=== PATIENT | female | born 1950 | race Caucasian/White ===

== ENCOUNTER 2018-12-27 06:13 | Inpatient (IN) ==
[~2018-12-27 06:13] MED LIST: ASPIRIN 325 MG TABLET PO ONE; DEXTROSE 5% NACL 0.45% 1,000 ML IV SCH; DIAZEPAM 5 MG TABLET PO ONE; MAGNESIUM SULF RIDER 2 GM in PREMIX 1 EACH IV PRN; POTASSIUM CHLORIDE RIDER 10 MEQ in PREMIX 1 EACH IV PRN; diphenhydrAMINE CAP 25 MG CAPSULE PO ONE
[2018-12-27] MEDS ORDERED: HEPARIN/NACL 0.9% 2 UNITS/ML 1,000 ML IV ONE (06:58)
[2018-12-27] MEDS ORDERED: LIDOCAINE 1%/EPI INJ 20 ML VIAL ONE (07:14)
[2018-12-27] MEDS ORDERED: diphenhydrAMINE CAP 25 MG CAPSULE PO ONE (07:30)
[2018-12-27] MEDS ORDERED: DIAZEPAM 5 MG TABLET PO ONE (07:30)
[2018-12-27] MEDS ORDERED: ASPIRIN 325 MG TABLET PO ONE (07:30)
[2018-12-27] MEDS ORDERED: MIDAZOLAM 2 MG/2 ML VIAL ONE (08:35)
[2018-12-27] MEDS ORDERED: fentaNYL 100 MCG/2 ML VIAL ONE (08:35)
[2018-12-27] MEDS ORDERED: MECLIZINE 25 MG TABLET PO PRN (09:27)
[2018-12-27] MEDS ORDERED: NITROGLYCERIN SL 0.4 MG TABLET SL PRN (09:27)
[2018-12-27] MEDS ORDERED: MAGNESIUM SULF RIDER 4 GM in PREMIX 1 EACH IV PRN (11:22)
[2018-12-27] MEDS ORDERED: ACETAMINOPHEN 325 MG TABLET PO PRN (11:22)
[2018-12-27] MEDS ORDERED: ONDANSETRON 4 MG/2 ML VIAL IV PRN (11:22)
[2018-12-27] MEDS ORDERED: MAGNESIUM SULF RIDER 2 GM in PREMIX 1 EACH IV PRN (11:22)
[2018-12-27] MEDS ORDERED: diphenhydrAMINE CAP 25 MG CAPSULE PO PRN (11:22)
[2018-12-27] MEDS ORDERED: MAGNESIUM HYDROXIDE SUSP 30 ML UDCUP PO PRN (13:09)
[2018-12-27] MEDS ORDERED: ALPRAZolam 0.25 MG TABLET PO PRN (13:10)
[2018-12-27] MEDS ORDERED: LISINOPRIL 20 MG TABLET PO ONE (13:53)
[2018-12-27] MEDS: METOPROLOL TARTRATE 25 MG TABLET PO SCH (22:08)
[2018-12-27] MEDS: ASCORBIC ACID 500 MG TABLET PO SCH (22:09)
[2018-12-27] MEDS: MELOXICAM 7.5 MG TABLET PO SCH (22:09)
[2018-12-27] MEDS: DICYCLOMINE 20 MG TABLET PO SCH (22:10)
[2018-12-28 05:01] LABS: Basophils % 0.3 % (0.0-0.8); Eosinophils # 0.2 10*3/uL (0.0-0.87); Eosinophils % 2.1 % (0.00-10.9); Hematocrit 37.9 VOL% (35.7-47.0); Immature Granulocytes % 0.6 %; Immature Granulocytes Absolute 0.04 #; Lymphocytes # 1.7 10*3/uL (1.4-4.0); Lymphocytes % 24.3 % (21.3-54.2); Mean Corpuscular HGB Conc 31.7 GM/DL (32-36); Mean Corpuscular Volume 94.3 FL (87-102); Mean Platelet Volume 11.4 FL (9.6-12.0); Monocytes % 10.1 % (1.7-12.7); Neutrophils % 62.6 % (38.7-73.9); Platelet Count 254 T/CUMM (130-400); Red Blood Count 4.02 MC/CUMM (3.8-5.5); Red Cell Distribution Width 13.4 % (9.3-17.3)
[2018-12-28 05:32] LABS: Alanine Aminotransferase 22 U/L (13-56); Albumin 3.3 G/DL (3.4-5.0); Alkaline Phosphatase 39 U/L (45-117); Aspartate Amino Transferase 20 U/L (0-37); Bilirubin,Total < 0.39 MG/DL (0.2-1.0); Blood Urea Nitrogen 34 MG/DL (7-18); Calcium 9.4 MG/DL (8.5-10.1); Glucose 126 MG/DL (74-106); Osmolality,Calculated 290.3 MOS/KG (273-304); Total Protein 7.3 G/DL (6.4-8.3)
[2018-12-28 05:43] LABS: Apearance,Urine CLEAR (Clear); Bilirubin,Urine Negative (Negative); Blood, Urine Negative (Negative); Glucose,Urine (UA) 50 mg/dL (Negative); Ketones,Urine Negative (Negative); Mucus,Urine Occasional /LPF (Occasional); Nitrite,Urine Negative (Negative); Protein,Urine Negative; RBC,Urine 1 /HPF (0-4); Squamous Epithelial Cell,Urine Occasional /HPF (0-10); Urine Color Yellow (Yellow); Urine Specific Gravity 1.018 (1.001-1.035); Urine Urobilinogen < 2.0 EU/DL (0.2-1.0); WBC,Urine 23 /HPF (0-6)
[2018-12-28] MEDS: LEVOTHYROXINE 150 MCG TABLET PO SCH (06:35)
[2018-12-28] MEDS: MELOXICAM 7.5 MG TABLET PO SCH ×2 (08:18→21:09)
[2018-12-28] MEDS: ASCORBIC ACID 500 MG TABLET PO SCH ×2 (08:19→21:09)
[2018-12-28] MEDS: METOPROLOL TARTRATE 25 MG TABLET PO SCH ×2 (08:19→21:08)
[2018-12-28] MEDS: FENOFIBRATE 145 MG TABLET PO SCH (08:20)
[2018-12-28] MEDS: PANTOPRAZOLE 40 MG TABLET PO SCH (08:20)
[2018-12-28] MEDS: amLODIPine 2.5 MG TABLET PO SCH (08:20)
[2018-12-28] MEDS: LISINOPRIL 20 MG TABLET PO SCH (08:20)
[2018-12-28] MEDS: hydroCHLOROthiazide 12.5 MG CAPSULE PO SCH (08:20)
[2018-12-28] MEDS: ASPIRIN EC 81 MG TABLET PO SCH (08:21)
[2018-12-28] MEDS: DICYCLOMINE 20 MG TABLET PO SCH ×2 (08:21→21:09)
[2018-12-28] MEDS: Dapagliflozin [Farxiga] 5 MG PO SCH (08:21)
[2018-12-28] MEDS ORDERED: DEXTROSE 50% 25 GM/50 ML VIAL IV PRN (10:11)
[2018-12-28] MEDS ORDERED: GLUCAGON 1 MG VIAL IM PRN (10:11)
[2018-12-28] MEDS: ENOXAPARIN 120 MG/0.8 ML SYRINGE SUBCUT SCH ×2 (10:39→23:44)
[2018-12-28] MEDS: INSULIN LISPRO 100 UNIT/ML SUBCUT SCH ×3 (14:23→21:09)
[2018-12-28] MEDS: ROSUVASTATIN 20 MG TABLET PO SCH (21:08)
[2018-12-29 04:40] LABS: Basophils % 0.5 % (0.0-0.8); Eosinophils # 0.2 10*3/uL (0.0-0.87); Eosinophils % 2.5 % (0.00-10.9); Hematocrit 38.9 VOL% (35.7-47.0); Hemoglobin 12.2 GM/DL (12.0-16.0); Immature Granulocytes % 0.6 %; Immature Granulocytes Absolute 0.04 #; Lymphocytes # 1.5 10*3/uL (1.4-4.0); Lymphocytes % 23.2 % (21.3-54.2); Mean Corpuscular HGB Conc 31.4 GM/DL (32-36); Mean Corpuscular Volume 94.4 FL (87-102); Monocytes % 11.8 % (1.7-12.7); Neutrophils % 61.4 % (38.7-73.9); Platelet Count 251 T/CUMM (130-400); Red Blood Count 4.12 MC/CUMM (3.8-5.5); Red Cell Distribution Width 13.2 % (9.3-17.3); White Blood Count 6.3 T/CUMM (4-12)
[2018-12-29 05:05] LABS: Albumin 3.3 G/DL (3.4-5.0); Bilirubin,Total 0.4 MG/DL (0.2-1.0); Calcium 9.8 MG/DL (8.5-10.1); Osmolality,Calculated 287.4 MOS/KG (273-304); Total Protein 7.5 G/DL (6.4-8.3)
[2018-12-29] MEDS ORDERED: GLUCAGON 1 MG VIAL IM PRN (06:17)
[2018-12-29] MEDS ORDERED: DEXTROSE 50% 25 GM/50 ML VIAL IV PRN (06:17)
[2018-12-29] MEDS: LEVOTHYROXINE 150 MCG TABLET PO SCH (06:24)
[2018-12-29 06:38] LABS: ABG Base Excess 1.1 MMOL/L (-2.5-2.5); ABG HCO3 25.3 MMOL/L (20-26); ABG Oxygen Saturation 96.6 % (95-100); ABG PCO2 42.4 MM HG (35-48); ABG PH 7.398 (7.35-7.45); ABG PO2 87.4 MM HG (80-95); ABG TCO2 22.7 MMOL/L (23-27); Allen Test Positive; Pt O2 Delivery Device Room Air
[2018-12-29] MEDS: INSULIN LISPRO 100 UNIT/ML SUBCUT SCH ×4 (08:26→21:23)
[2018-12-29] MEDS: ENOXAPARIN 120 MG/0.8 ML SYRINGE SUBCUT SCH ×2 (08:39→21:21)
[2018-12-29] MEDS: CHLORHEXIDINE 0.12% ORAL RINSE 60 ML BOTTLE SWISH/SPIT SCH ×2 (08:39→21:20)
[2018-12-29] MEDS: amLODIPine 2.5 MG TABLET PO SCH (08:40)
[2018-12-29] MEDS: PANTOPRAZOLE 40 MG TABLET PO SCH (08:40)
[2018-12-29] MEDS: LISINOPRIL 20 MG TABLET PO SCH (08:40)
[2018-12-29] MEDS: ASCORBIC ACID 500 MG TABLET PO SCH ×2 (08:40→21:22)
[2018-12-29] MEDS: hydroCHLOROthiazide 12.5 MG CAPSULE PO SCH (08:40)
[2018-12-29] MEDS: CHLORHEXIDINE 4% SOLN 118 ML BOTTLE TOP SCH ×3 (08:41→21:23)
[2018-12-29] MEDS: FENOFIBRATE 145 MG TABLET PO SCH (08:41)
[2018-12-29] MEDS: METOPROLOL TARTRATE 25 MG TABLET PO SCH ×2 (08:41→21:22)
[2018-12-29] MEDS: MELOXICAM 7.5 MG TABLET PO SCH ×2 (08:41→21:22)
[2018-12-29] MEDS: ASPIRIN EC 81 MG TABLET PO SCH (08:41)
[2018-12-29] MEDS: Dapagliflozin [Farxiga] 5 MG PO SCH (08:41)
[2018-12-29] MEDS: DICYCLOMINE 20 MG TABLET PO SCH ×2 (08:41→21:26)
[2018-12-29] MEDS ORDERED: LACTATED RINGERS 1,000 ML IV SCH (10:30)
[2018-12-29] MEDS: SODIUM CHLORIDE 0.9% 1,000 ML IV SCH (11:47)
[2018-12-29] MEDS: ROSUVASTATIN 20 MG TABLET PO SCH (21:22)
[2018-12-30] MEDS ORDERED: PAPAVERINE 60 MG/2 ML VIAL ONE (04:22)
[2018-12-30] MEDS ORDERED: VANCOMYCIN 1,000 MG VIAL ONE (04:22)
[2018-12-30] MEDS ORDERED: PANTOPRAZOLE 40 MG TABLET PO ONE (05:30)
[2018-12-30] MEDS ORDERED: DIAZEPAM 5 MG TABLET PO ONE (05:30)
[2018-12-30] MEDS ORDERED: SUFentanil 250 MCG/5 ML AMP ONE (05:46)
[2018-12-30] MEDS ORDERED: HEPARIN/NACL 0.9% 2 UNITS/ML 500 ML IV ONE (05:46)
[2018-12-30] MEDS ORDERED: PHENYLEPHRINE DRIP 20 MG/250 ML PREMIX IV ONE (05:46)
[2018-12-30] MEDS ORDERED: CALCIUM CHLORIDE 1,000 MG/10 ML VIAL IV ONE (05:46)
[2018-12-30 05:47] LABS: Basophils % 0.4 % (0.0-0.8); Eosinophils # 0.2 10*3/uL (0.0-0.87); Eosinophils % 2.5 % (0.00-10.9); Hematocrit 39.8 VOL% (35.7-47.0); Hemoglobin 12.6 GM/DL (12.0-16.0); Immature Granulocytes % 0.6 %; Immature Granulocytes Absolute 0.04 #; Lymphocytes # 1.8 10*3/uL (1.4-4.0); Lymphocytes % 24.5 % (21.3-54.2); Mean Corpuscular HGB Conc 31.7 GM/DL (32-36); Mean Corpuscular Volume 94.1 FL (87-102); Mean Platelet Volume 11.6 FL (9.6-12.0); Monocytes % 9.1 % (1.7-12.7); Neutrophils % 62.9 % (38.7-73.9); Platelet Count 304 T/CUMM (130-400); Red Blood Count 4.23 MC/CUMM (3.8-5.5); Red Cell Distribution Width 13.2 % (9.3-17.3); White Blood Count 7.3 T/CUMM (4-12)
[2018-12-30] MEDS ORDERED: ePHEDrine 50 MG/ML AMP ONE (05:47)
[2018-12-30] MEDS ORDERED: ETOMIDATE 40 MG/20 ML VIAL IV ONE (05:47)
[2018-12-30] MEDS ORDERED: MIDAZOLAM 10 MG/2 ML VIAL ONE ×2 (05:47)
[2018-12-30] MEDS ORDERED: VECURONIUM 10 MG VIAL IV ONE (05:47)
[2018-12-30] MEDS ORDERED: SODIUM CHLORIDE 0.9% 250 ML IV ONE (05:48)
[2018-12-30] MEDS ORDERED: AMINOCAPROIC ACID 5,000 MG/20 ML VIAL ONE (05:48)
[2018-12-30] MEDS ORDERED: LACTATED RINGERS 1,000 ML IV ONE (05:48)
[2018-12-30] MEDS ORDERED: SODIUM CHLORIDE 0.9% 1,000 ML IV ONE (05:48)
[2018-12-30] MEDS ORDERED: CEFUROXIME INJ 1,500 MG in SYRINGE 1 EACH IV ONE (06:00)
[2018-12-30 06:37] LABS: Albumin 3.4 G/DL (3.4-5.0); Bilirubin,Total 0.6 MG/DL (0.2-1.0); Calcium 9.6 MG/DL (8.5-10.1); Osmolality,Calculated 287.5 MOS/KG (273-304); Total Protein 7.9 G/DL (6.4-8.3)
[2018-12-30 07:37] LABS: ABG Base Excess -0.7 MMOL/L (-2.5-2.5); ABG HCO3 23.9 MMOL/L (20-26); ABG Oxygen Saturation 99.2 % (95-100); ABG PCO2 43.5 MM HG (35-48); ABG PH 7.365 (7.35-7.45); Glucose Heart Surgery 169 MG/DL (74-106); Hematocrit Heart Surgery 37.2 PERCENT (37-47); Hemoglobin Heart Surgery 12.1 G/DL (12.0-16.0); Ionized Calcium Arterial 1.27 MMOL/L (1.21-1.46); PCO2 Patient Temp Arterial 43.5 MMHG; PH Patient Temp Arterial 7.365; Patient Temperature 37 CELCIUS; Potassium Heart/CVR 4.2 MMOL/L (3.5-5.1); Sodium Heart/CVR 140 MMOL/L (135-145)
[2018-12-30 07:52] LABS: Apearance,Urine CLEAR (Clear); Bacteria,Urine Occasional /HPF (Few); Bilirubin,Urine Negative (Negative); Blood, Urine Negative (Negative); Glucose,Urine (UA) Negative (Negative); Hyaline Casts,Urine 1 /LPF (0-3); Ketones,Urine Negative (Negative); Mucus,Urine Occasional /LPF (Occasional); Nitrite,Urine Negative (Negative); Protein,Urine Negative; RBC,Urine <1 /HPF (0-4); Squamous Epithelial Cell,Urine Occasional /HPF (0-10); Urine Color Yellow (Yellow); Urine Specific Gravity 1.014 (1.001-1.035); Urine Urobilinogen < 2.0 EU/DL (0.2-1.0); WBC,Urine 1 /HPF (0-6)
[2018-12-30] MEDS ORDERED: PHENYLEPHRINE DRIP 40 MG/250 ML PREMIX IV ONE (09:16)
[2018-12-30] MEDS ORDERED: NITROPRUSSIDE 50 MG/2 ML VIAL ONE (09:16)
[2018-12-30] MEDS ORDERED: POTASSIUM CHLORIDE RIDER 100 ML IV ONE (09:16)
[2018-12-30] MEDS ORDERED: SODIUM BICARBONATE 50 MEQ/50 ML VIAL IV ONE ×3 (09:16→14:27)
[2018-12-30] MEDS ORDERED: CALCIUM CHLORIDE 1,000 MG/10 ML SYRINGE IV ONE (09:16)
[2018-12-30 09:30] LABS: Hemoglobin Heart Surgery 8.4 G/DL (12.0-16.0); PCO2 Patient Temp Venous 35.8 MM HG; PH Patient Temp Venous 7.441; PO2 Patient Temp Venous 39.3 MM HG; Potassium Heart/CVR 4.5 MMOL/L (3.5-5.1); VBG Base Excess 0.6 MEQ/L (0-4); VBG HCO3 24.7 MEQ/L (24-28); VBG Oxygen Saturation 80.6 %; VBG PCO2 39.4 MMHG (41-51); VBG PH 7.412; VBG PO2 45.1 MMHG (17-40)
[2018-12-30] MEDS: INSULIN LISPRO 100 UNIT/ML SUBCUT SCH ×2 (09:46→13:16)
[2018-12-30] MEDS: SODIUM CHLORIDE 0.9% 1,000 ML IV SCH (09:46)
[2018-12-30] MEDS: METOPROLOL TARTRATE 25 MG TABLET PO SCH (09:47)
[2018-12-30] MEDS: LEVOTHYROXINE 150 MCG TABLET PO SCH (09:47)
[2018-12-30] MEDS: MELOXICAM 7.5 MG TABLET PO SCH (09:47)
[2018-12-30] MEDS: Dapagliflozin [Farxiga] 5 MG PO SCH (09:47)
[2018-12-30] MEDS: ASPIRIN EC 81 MG TABLET PO SCH (09:47)
[2018-12-30] MEDS: DICYCLOMINE 20 MG TABLET PO SCH (09:47)
[2018-12-30] MEDS: hydroCHLOROthiazide 12.5 MG CAPSULE PO SCH (09:47)
[2018-12-30] MEDS: amLODIPine 2.5 MG TABLET PO SCH (09:48)
[2018-12-30] MEDS: CHLORHEXIDINE 0.12% ORAL RINSE 60 ML BOTTLE SWISH/SPIT SCH ×2 (09:48→21:47)
[2018-12-30] MEDS: ENOXAPARIN 120 MG/0.8 ML SYRINGE SUBCUT SCH (09:48)
[2018-12-30] MEDS: FENOFIBRATE 145 MG TABLET PO SCH (09:48)
[2018-12-30] MEDS: ASCORBIC ACID 500 MG TABLET PO SCH (09:48)
[2018-12-30] MEDS: LISINOPRIL 20 MG TABLET PO SCH (09:48)
[2018-12-30] MEDS: PANTOPRAZOLE 40 MG TABLET PO SCH (09:48)
[2018-12-30 10:03] LABS: Hematocrit Heart Surgery 28.1 PERCENT (37-47); Hemoglobin Heart Surgery 9.1 G/DL (12.0-16.0); PCO2 Patient Temp Venous 33.5 MM HG; PH Patient Temp Venous 7.454; PO2 Patient Temp Venous 37.3 MM HG; Potassium Heart/CVR 4.4 MMOL/L (3.5-5.1); VBG HCO3 24.2 MEQ/L (24-28); VBG Oxygen Saturation 80.8 %; VBG PCO2 38.7 MMHG (41-51); VBG PH 7.41; VBG PO2 45.9 MMHG (17-40)
[2018-12-30 10:41] LABS: Hematocrit Heart Surgery 29.6 PERCENT (37-47); Hemoglobin Heart Surgery 9.6 G/DL (12.0-16.0); PCO2 Patient Temp Venous 38.6 MM HG; PH Patient Temp Venous 7.396; PO2 Patient Temp Venous 43.2 MM HG; Potassium Heart/CVR 4.2 MMOL/L (3.5-5.1); VBG Base Excess -0.9 MEQ/L (0-4); VBG HCO3 23.3 MEQ/L (24-28); VBG Oxygen Saturation 77.5 %; VBG PCO2 38.6 MMHG (41-51); VBG PH 7.396; VBG PO2 43.2 MMHG (17-40)
[2018-12-30 11:02] LABS: ABG Base Excess -2.9 MMOL/L (-2.5-2.5); ABG Oxygen Saturation 97.8 % (95-100); ABG PCO2 40.2 MM HG (35-48); ABG PH 7.354 (7.35-7.45); ABG TCO2 20.6 MMOL/L (23-27); Glucose Heart Surgery 275 MG/DL (74-106); Hematocrit Heart Surgery 29.3 PERCENT (37-47); Hemoglobin Heart Surgery 9.5 G/DL (12.0-16.0); Ionized Calcium Arterial 1.23 MMOL/L (1.21-1.46); PCO2 Patient Temp Arterial 40.2 MMHG; PH Patient Temp Arterial 7.354; Patient Temperature 37 CELCIUS; Potassium Heart/CVR 3.5 MMOL/L (3.5-5.1); Sodium Heart/CVR 134 MMOL/L (135-145)
[2018-12-30] MEDS ORDERED: DEXTROSE 5% KCL 20 MEQ 20 MEQ/1,000 ML BAG IV ONE (11:10)
[2018-12-30] MEDS ORDERED: MAGNESIUM SULFATE 5 GM/10 ML VIAL IV ONE (11:10)
[2018-12-30] MEDS ORDERED: MANNITOL 100 GM/500 ML BAG IV ONE (11:10)
[2018-12-30] MEDS ORDERED: HEPARIN 10,000 UNIT/10 ML VIAL ONE (11:10)
[2018-12-30] MEDS ORDERED: methylPREDNISolone SOD SUC 1,000 MG/8 ML VIAL ONE (11:10)
[2018-12-30] MEDS ORDERED: ALBUMIN 25% 25 GM/100 ML VIAL IV ONE (11:10)
[2018-12-30] MEDS ORDERED: PROTAMINE SULFATE 250 MG/25 ML VIAL IV ONE (11:10)
[2018-12-30] MEDS ORDERED: FUROSEMIDE 20 MG/2 ML VIAL ONE (11:11)
[2018-12-30] MEDS ORDERED: POTASSIUM CHLORIDE 20 MEQ/10 ML VIAL ONE (11:11)
[2018-12-30] MEDS ORDERED: SEVOFLURANE 1 UNIT/15 MINUTE INH ONE (11:44)
[2018-12-30] MEDS ORDERED: NITROPRUSSIDE 100 MG in DEXTROSE 5% 250 ML IV PRN (11:48)
[2018-12-30] MEDS ORDERED: MIDAZOLAM 10 MG/2 ML VIAL IV PRN (11:48)
[2018-12-30] MEDS ORDERED: ONDANSETRON 4 MG/2 ML VIAL IV PRN (11:48)
[2018-12-30] MEDS ORDERED: MIDAZOLAM 2 MG/2 ML VIAL IV PRN (11:48)
[2018-12-30] MEDS ORDERED: VECURONIUM 10 MG VIAL IV PRN ×2 (11:48)
[2018-12-30] MEDS ORDERED: INSULIN REGULAR 100 UNIT/ML IV ONE (11:48)
[2018-12-30] MEDS ORDERED: MAGNESIUM SULF RIDER 4 GM in PREMIX 1 EACH IV PRN (11:48)
[2018-12-30] MEDS ORDERED: POTASSIUM CHLORIDE RIDER 10 MEQ in PREMIX 1 EACH IV PRN (11:48)
[2018-12-30] MEDS ORDERED: MAGNESIUM SULF RIDER 2 GM in PREMIX 1 EACH IV PRN (11:48)
[2018-12-30] MEDS ORDERED: PHENYLEPHRINE DRIP 40 MG/250 ML PREMIX IV PRN (11:48)
[2018-12-30] MEDS ORDERED: DEXTROSE 50% 25 GM/50 ML VIAL IV PRN ×2 (11:48)
[2018-12-30] MEDS ORDERED: LACTATED RINGERS 250 ML IV PRN (11:48)
[2018-12-30] MEDS ORDERED: ACETAMINOPHEN 650 MG SUPP RECTAL PRN (11:48)
[2018-12-30] MEDS ORDERED: CALCIUM CHLORIDE 1,000 MG/10 ML SYRINGE IV PRN (11:48)
[2018-12-30] MEDS ORDERED: MORPHINE 10 MG/1 ML VIAL IV PRN (11:48)
[2018-12-30] MEDS ORDERED: ALBUMIN 5% 12.5 GM in PREMIX 1 EACH IV PRN (11:48)
[2018-12-30] MEDS ORDERED: INSULIN REGULAR 100 UNIT/ML IV PRN (11:48)
[2018-12-30 11:51] LABS: ABG Base Excess -4.7 MMOL/L (-2.5-2.5); ABG HCO3 20.4 MMOL/L (20-26); ABG Oxygen Saturation 95.5 % (95-100); ABG PCO2 47.8 MM HG (35-48); ABG PH 7.276 (7.35-7.45); ABG PO2 90.9 MM HG (80-95); ABG TCO2 20.4 MMOL/L (23-27); Glucose Heart Surgery 247 MG/DL (74-106); Hematocrit Heart Surgery 32.8 PERCENT (37-47); Hemoglobin Heart Surgery 10.6 G/DL (12.0-16.0); Potassium Heart/CVR 3.2 MMOL/L (3.5-5.1)
[2018-12-30 11:55] LABS: Eosinophils % 0.4 % (0.00-10.9); Mean Platelet Volume 11.1 FL (9.6-12.0)
[2018-12-30 11:59] LABS: Basophils % 0.2 % (0.0-0.8); Eosinophils # 0.1 10*3/uL (0.0-0.87); Hematocrit 33.3 VOL% (35.7-47.0); Immature Granulocytes % 1.1 %; Lymphocytes # 2.9 10*3/uL (1.4-4.0); Lymphocytes % 15.6 % (21.3-54.2); Mean Corpuscular HGB Conc 30.3 GM/DL (32-36); Mean Corpuscular Volume 97.4 FL (87-102); Monocytes % 4.7 % (1.7-12.7); Red Blood Count 3.42 MC/CUMM (3.8-5.5); Red Cell Distribution Width 13.3 % (9.3-17.3)
[2018-12-30] MEDS ORDERED: KETOROLAC 15 MG/1 ML VIAL IV SCH (12:00)
[2018-12-30 12:04] LABS: Hemoglobin 10.1 GM/DL (12.0-16.0); Platelet Count 259 T/CUMM (130-400); White Blood Count 18.4 T/CUMM (4-12)
[2018-12-30 12:06] LABS: CKMB % 10.9 %
[2018-12-30 12:09] LABS: INR 1.1; PT Patient Result 11.4 SECS; Partial Thromboplastin Time 25.5 SECS (0-40)
[2018-12-30 12:11] LABS: Troponin I 4.94 NG/ML (0.00-0.045)
[2018-12-30 12:12] LABS: Alanine Aminotransferase 19 U/L (13-56); Albumin 3.4 G/DL (3.4-5.0); Alkaline Phosphatase 39 U/L (45-117); Aspartate Amino Transferase 35 U/L (0-37); Bilirubin,Total < 0.39 MG/DL (0.2-1.0); Blood Urea Nitrogen 30 MG/DL (7-18); Calcium 9.8 MG/DL (8.5-10.1); Glucose 227 MG/DL (74-106); Osmolality,Calculated 289.5 MOS/KG (273-304); Total Protein 6.8 G/DL (6.4-8.3)
[2018-12-30] MEDS: SODIUM CHLORIDE 0.45% 1,000 ML IV SCH ×2 (12:25→12:26)
[2018-12-30] MEDS: POTASSIUM CHLORIDE RIDER 20 MEQ in PREMIX 1 EACH IV PRN ×5 (12:28→18:03)
[2018-12-30 13:28] LABS: ABG HCO3 20.3 MMOL/L (20-26); ABG Oxygen Saturation 96.6 % (95-100); ABG PCO2 45.5 MM HG (35-48); ABG PH 7.285 (7.35-7.45); ABG PO2 98.6 MM HG (80-95); Glucose Heart Surgery 239 MG/DL (74-106); Hematocrit Heart Surgery 30.3 PERCENT (37-47); Hemoglobin Heart Surgery 9.8 G/DL (12.0-16.0); Potassium Heart/CVR 3.9 MMOL/L (3.5-5.1)
[2018-12-30] MEDS: INSULIN REGULAR DRIP 100 ML IV SCH (13:37)
[2018-12-30] MEDS: ALBUTEROL/IPRATROPIUM 3 ML NEB RESP TX SCH ×3 (15:10→23:38)
[2018-12-30 15:12] LABS: ABG Base Excess 0.1 MMOL/L (-2.5-2.5); ABG HCO3 24.5 MMOL/L (20-26); ABG Oxygen Saturation 97.2 % (95-100); ABG PCO2 48.7 MM HG (35-48); ABG TCO2 24.1 MMOL/L (23-27); Glucose Heart Surgery 191 MG/DL (74-106); Hematocrit Heart Surgery 30.6 PERCENT (37-47); Hemoglobin Heart Surgery 9.9 G/DL (12.0-16.0); Potassium Heart/CVR 3.6 MMOL/L (3.5-5.1)
[2018-12-30] MEDS: MORPHINE 4 MG/1 ML VIAL IV PRN ×2 (15:20→17:06)
[2018-12-30 17:43] LABS: ABG Base Excess -1.9 MMOL/L (-2.5-2.5); ABG HCO3 22.8 MMOL/L (20-26); ABG PH 7.329 (7.35-7.45); Glucose Heart Surgery 162 MG/DL (74-106); Hematocrit Heart Surgery 48.8 PERCENT (37-47); Hemoglobin Heart Surgery 15.9 G/DL (12.0-16.0); Potassium Heart/CVR 4.1 MMOL/L (3.5-5.1)
[2018-12-30 19:01] LABS: ABG Base Excess -1.2 MMOL/L (-2.5-2.5); ABG HCO3 23.8 MMOL/L (20-26); ABG Oxygen Saturation 96.2 % (95-100); ABG PCO2 41.3 MM HG (35-48); ABG PH 7.379 (7.35-7.45); ABG PO2 96.1 MM HG (80-95); ABG TCO2 25.1 MMOL/L (23-27); Glucose Heart Surgery 138 MG/DL (74-106); Hemoglobin Heart Surgery 10.1 G/DL (12.0-16.0); Potassium Heart/CVR 4.5 MMOL/L (3.5-5.1)
[2018-12-30] MEDS: CEFUROXIME INJ 1,500 MG in SYRINGE 1 EACH IV SCH (21:16)
[2018-12-31] MEDS ORDERED: FUROSEMIDE 40 MG/4 ML VIAL IV ONE
[2018-12-31 01:20] LABS: ABG Base Excess 2.2 MMOL/L (-2.5-2.5); ABG HCO3 26.4 MMOL/L (20-26); ABG Oxygen Saturation 96.8 % (95-100); ABG PCO2 44.9 MM HG (35-48); ABG PH 7.395 (7.35-7.45); ABG PO2 86.6 MM HG (80-95); ABG TCO2 25.1 MMOL/L (23-27); Glucose Heart Surgery 142 MG/DL (74-106); Hematocrit Heart Surgery 29.4 PERCENT (37-47); Hemoglobin Heart Surgery 9.5 G/DL (12.0-16.0); Potassium Heart/CVR 4.3 MMOL/L (3.5-5.1)
[2018-12-31 02:23] LABS: ABG Base Excess 3.2 MMOL/L (-2.5-2.5); ABG HCO3 27.3 MMOL/L (20-26); ABG Oxygen Saturation 97.3 % (95-100); ABG PCO2 44.4 MM HG (35-48); ABG PH 7.411 (7.35-7.45); ABG PO2 91.5 MM HG (80-95); ABG TCO2 25.8 MMOL/L (23-27); Glucose Heart Surgery 149 MG/DL (74-106); Hematocrit Heart Surgery 29.3 PERCENT (37-47); Hemoglobin Heart Surgery 9.5 G/DL (12.0-16.0); Potassium Heart/CVR 4.3 MMOL/L (3.5-5.1)
[2018-12-31] MEDS: ALBUTEROL/IPRATROPIUM 3 ML NEB RESP TX SCH ×5 (02:52→20:57)
[2018-12-31 04:46] LABS: Basophils % 0.1 % (0.0-0.8); Hematocrit 29.2 VOL% (35.7-47.0); Hemoglobin 9.1 GM/DL (12.0-16.0); Immature Granulocytes % 0.7 %; Immature Granulocytes Absolute 0.11 #; Lymphocytes # 0.4 10*3/uL (1.4-4.0); Lymphocytes % 2.5 % (21.3-54.2); Mean Corpuscular HGB Conc 31.2 GM/DL (32-36); Mean Corpuscular Volume 95.7 FL (87-102); Mean Platelet Volume 11.1 FL (9.6-12.0); Monocytes % 5.2 % (1.7-12.7); Neutrophils % 91.5 % (38.7-73.9); Platelet Count 210 T/CUMM (130-400); Red Blood Count 3.05 MC/CUMM (3.8-5.5); Red Cell Distribution Width 13.9 % (9.3-17.3); White Blood Count 16.2 T/CUMM (4-12)
[2018-12-31 05:10] LABS: Alanine Aminotransferase 28 U/L (13-56); Albumin 3.5 G/DL (3.4-5.0); Alkaline Phosphatase 34 U/L (45-117); Aspartate Amino Transferase 139 U/L (0-37); Bilirubin,Direct < 0.100 MG/DL (0.0-0.20); Bilirubin,Total < 0.39 MG/DL (0.2-1.0); Blood Urea Nitrogen 28 MG/DL (7-18); Calcium 9.8 MG/DL (8.5-10.1); Glucose 143 MG/DL (74-106); Osmolality,Calculated 293.8 MOS/KG (273-304); Total Protein 6.9 G/DL (6.4-8.3)
[2018-12-31 05:19] LABS: ABG Base Excess 4.2 MMOL/L (-2.5-2.5); ABG HCO3 28.2 MMOL/L (20-26); ABG Oxygen Saturation 96.9 % (95-100); ABG PCO2 43.4 MM HG (35-48); ABG PH 7.432 (7.35-7.45); ABG PO2 86.2 MM HG (80-95); ABG TCO2 26.5 MMOL/L (23-27); Glucose Heart Surgery 154 MG/DL (74-106); Hematocrit Heart Surgery 28.9 PERCENT (37-47); Hemoglobin Heart Surgery 9.3 G/DL (12.0-16.0)
[2018-12-31 05:23] LABS: CKMB % 14.6 %
[2018-12-31] MEDS: POTASSIUM CHLORIDE RIDER 20 MEQ in PREMIX 1 EACH IV PRN (05:25)
[2018-12-31 05:38] LABS: Troponin I 24.3 NG/ML (0.00-0.045)
[2018-12-31 06:36] LABS: Anisocytosis 1+; Band Neutrophils 22 % (0-10); Lymphocytes 2 % (20-55); Macrocytosis Slight; Platelet Estimate Normal; Segmented Neutrophils 75 % (50-85); Total Cells Counted 100
[2018-12-31] MEDS: INSULIN REGULAR DRIP 100 ML IV SCH (06:40)
[2018-12-31 06:54] LABS: ABG Base Excess 4.2 MMOL/L (-2.5-2.5); ABG HCO3 28.1 MMOL/L (20-26); ABG Oxygen Saturation 93.1 % (95-100); ABG PCO2 42.2 MM HG (35-48); ABG PH 7.441 (7.35-7.45); ABG PO2 66.1 MM HG (80-95); ABG TCO2 26.2 MMOL/L (23-27); Glucose Heart Surgery 169 MG/DL (74-106); Hematocrit Heart Surgery 29.4 PERCENT (37-47); Hemoglobin Heart Surgery 9.5 G/DL (12.0-16.0); Potassium Heart/CVR 4.4 MMOL/L (3.5-5.1)
[2018-12-31] MEDS: CEFUROXIME INJ 1,500 MG in SYRINGE 1 EACH IV SCH (07:14)
[2018-12-31] MEDS ORDERED: GLUCAGON 1 MG VIAL IM PRN ×3 (08:17→12:56)
[2018-12-31] MEDS ORDERED: LISINOPRIL 20 MG TABLET PO ONE (09:23)
[2018-12-31] MEDS: INSULIN REGULAR 100 UNIT/ML SUBCUT SCH ×2 (09:24→10:16)
[2018-12-31] MEDS: CHLORHEXIDINE 0.12% ORAL RINSE 60 ML BOTTLE SWISH/SPIT SCH ×2 (09:24→21:21)
[2018-12-31] MEDS: MORPHINE 4 MG/1 ML VIAL IV PRN (10:14)
[2018-12-31] MEDS: ASPIRIN EC 81 MG TABLET PO SCH (10:18)
[2018-12-31 11:04] LABS: ABG Base Excess 3.5 MMOL/L (-2.5-2.5); ABG HCO3 27.5 MMOL/L (20-26); ABG Oxygen Saturation 95.1 % (95-100); ABG PCO2 41.7 MM HG (35-48); ABG PH 7.435 (7.35-7.45); ABG PO2 76.5 MM HG (80-95); ABG TCO2 25.7 MMOL/L (23-27); Glucose Heart Surgery 221 MG/DL (74-106); Hematocrit Heart Surgery 28.9 PERCENT (37-47); Hemoglobin Heart Surgery 9.3 G/DL (12.0-16.0); Potassium Heart/CVR 4.4 MMOL/L (3.5-5.1)
[2018-12-31] MEDS ORDERED: DEXTROSE 50% 25 GM/50 ML VIAL IV PRN ×2 (12:56)
[2018-12-31] MEDS ORDERED: SODIUM CHLOR 0.45% KCL 20 MEQ 20 MEQ/1,000 ML BAG IV SCH (12:56)
[2018-12-31] MEDS ORDERED: ONDANSETRON 4 MG/2 ML VIAL IV PRN (12:56)
[2018-12-31] MEDS ORDERED: ACETAMINOPHEN 325 MG TABLET PO PRN (12:56)
[2018-12-31] MEDS ORDERED: MAGNESIUM SULF RIDER 4 GM in PREMIX 1 EACH IV PRN (12:56)
[2018-12-31] MEDS ORDERED: ALUMINUM/MAGNES/SIMETH MAX STR 30 ML UDCUP PO PRN (12:56)
[2018-12-31] MEDS ORDERED: MAGNESIUM HYDROXIDE SUSP 30 ML UDCUP PO PRN (12:56)
[2018-12-31] MEDS ORDERED: MAGNESIUM SULF RIDER 2 GM in PREMIX 1 EACH IV PRN (12:56)
[2018-12-31] MEDS: SODIUM CHLORIDE 0.45% 1,000 ML IV SCH ×2 (15:38→15:39)
[2018-12-31] MEDS ORDERED: METOPROLOL TARTRATE 25 MG TABLET PO SCH (21:00)
[2018-12-31] MEDS ORDERED: MELOXICAM 7.5 MG TABLET PO SCH (21:00)
[2018-12-31] MEDS: MELOXICAM 7.5 MG TABLET PO SCH (21:19)
[2018-12-31] MEDS: ASCORBIC ACID 500 MG TABLET PO SCH (21:19)
[2018-12-31] MEDS: METOPROLOL TARTRATE 25 MG TABLET PO SCH (21:19)
[2018-12-31] MEDS: oxyCODONE/ACETAMINOPHEN 5-325 MG TABLET PO PRN (21:20)
[2019-01-01] MEDS: ALBUTEROL/IPRATROPIUM 3 ML NEB RESP TX SCH ×7 (01:05→23:09)
[2019-01-01] MEDS ORDERED: FUROSEMIDE 40 MG/4 ML VIAL IV ONE (06:00)
[2019-01-01 06:02] LABS: Basophils % 0.1 % (0.0-0.8); Hematocrit 25.1 VOL% (35.7-47.0); Hemoglobin 7.7 GM/DL (12.0-16.0); Immature Granulocytes % 0.9 %; Immature Granulocytes Absolute 0.15 #; Lymphocytes # 1.3 10*3/uL (1.4-4.0); Lymphocytes % 7.9 % (21.3-54.2); Mean Corpuscular HGB Conc 30.7 GM/DL (32-36); Mean Corpuscular Volume 96.9 FL (87-102); Mean Platelet Volume 11.7 FL (9.6-12.0); Neutrophils % 83.1 % (38.7-73.9); Platelet Count 216 T/CUMM (130-400); Red Blood Count 2.59 MC/CUMM (3.8-5.5); Red Cell Distribution Width 14.3 % (9.3-17.3); White Blood Count 16.3 T/CUMM (4-12)
[2019-01-01] MEDS: LEVOTHYROXINE 150 MCG TABLET PO SCH (06:15)
[2019-01-01 06:20] LABS: Albumin 2.9 G/DL (3.4-5.0); Bilirubin,Direct 0.11 MG/DL (0.0-0.20); Bilirubin,Indirect 0.4 MG/DL (0.0-1.0); Bilirubin,Total 0.5 MG/DL (0.2-1.0); CKMB % 3.8 %; Calcium 9.4 MG/DL (8.5-10.1); Osmolality,Calculated 287.5 MOS/KG (273-304); Total Protein 6.3 G/DL (6.4-8.3)
[2019-01-01 06:21] LABS: Troponin I 9.62 NG/ML (0.00-0.045)
[2019-01-01] MEDS: CHLORHEXIDINE 0.12% ORAL RINSE 60 ML BOTTLE SWISH/SPIT SCH ×2 (08:48→21:48)
[2019-01-01] MEDS: INSULIN LISPRO 100 UNIT/ML SUBCUT SCH ×4 (08:48→21:33)
[2019-01-01] MEDS: ASPIRIN EC 81 MG TABLET PO SCH (08:49)
[2019-01-01] MEDS: METOPROLOL TARTRATE 25 MG TABLET PO SCH ×2 (08:49→21:49)
[2019-01-01] MEDS: FENOFIBRATE 145 MG TABLET PO SCH (08:49)
[2019-01-01] MEDS: hydroCHLOROthiazide 12.5 MG CAPSULE PO SCH (08:49)
[2019-01-01] MEDS: FERROUS SULFATE 325 MG TABLET PO SCH (08:50)
[2019-01-01] MEDS: amLODIPine 5 MG TABLET PO SCH (08:50)
[2019-01-01] MEDS: ASCORBIC ACID 500 MG TABLET PO SCH ×2 (08:50→21:49)
[2019-01-01] MEDS: PANTOPRAZOLE 40 MG TABLET PO SCH (08:50)
[2019-01-01] MEDS: MELOXICAM 7.5 MG TABLET PO SCH (08:54)
[2019-01-01] MEDS: DOCUSATE SODIUM 100 MG CAPSULE PO SCH (08:54)
[2019-01-01] MEDS ORDERED: hydroCHLOROthiazide 12.5 MG CAPSULE PO SCH (09:00)
[2019-01-01] MEDS ORDERED: ASPIRIN EC 81 MG TABLET PO SCH (09:00)
[2019-01-01] MEDS ORDERED: amLODIPine 5 MG TABLET PO SCH (09:00)
[2019-01-01] MEDS: oxyCODONE/ACETAMINOPHEN 5-325 MG TABLET PO PRN (21:48)
[2019-01-01] MEDS: ZALEPLON 5 MG CAPSULE PO PRN (21:48)
[2019-01-02] MEDS: ALBUTEROL/IPRATROPIUM 3 ML NEB RESP TX SCH ×6 (03:12→22:41)
[2019-01-02 05:29] LABS: Basophils % 0.1 % (0.0-0.8); Eosinophils % 0.2 % (0.00-10.9); Hematocrit 22.8 VOL% (35.7-47.0); Hemoglobin 7.2 GM/DL (12.0-16.0); Immature Granulocytes % 1.4 %; Immature Granulocytes Absolute 0.18 #; Lymphocytes # 1.4 10*3/uL (1.4-4.0); Mean Corpuscular HGB Conc 31.6 GM/DL (32-36); Mean Platelet Volume 12.2 FL (9.6-12.0); Monocytes % 7.9 % (1.7-12.7); Neutrophils % 79.4 % (38.7-73.9); Platelet Count 210 T/CUMM (130-400); Red Cell Distribution Width 14.3 % (9.3-17.3); White Blood Count 13.1 T/CUMM (4-12)
[2019-01-02 05:59] LABS: Alanine Aminotransferase 22 U/L (13-56); Albumin 2.8 G/DL (3.4-5.0); Alkaline Phosphatase 40 U/L (45-117); Aspartate Amino Transferase 53 U/L (0-37); Bilirubin,Direct < 0.100 MG/DL (0.0-0.20); Bilirubin,Indirect 0.3 MG/DL (0.0-1.0); Blood Urea Nitrogen 51 MG/DL (7-18); CKMB % 1.9 %; Calcium 9.2 MG/DL (8.5-10.1); Glucose 160 MG/DL (74-106); Osmolality,Calculated 289.8 MOS/KG (273-304); Total Protein 6.2 G/DL (6.4-8.3)
[2019-01-02] MEDS: LEVOTHYROXINE 150 MCG TABLET PO SCH (06:06)
[2019-01-02] MEDS ORDERED: SODIUM CHLORIDE 0.9% 1,000 ML IV PRN (06:30)
[2019-01-02] MEDS ORDERED: FUROSEMIDE 40 MG/4 ML VIAL IV ONE (06:33)
[2019-01-02] MEDS: INSULIN LISPRO 100 UNIT/ML SUBCUT SCH ×4 (08:06→20:34)
[2019-01-02] MEDS: ASCORBIC ACID 500 MG TABLET PO SCH ×2 (08:55→20:34)
[2019-01-02] MEDS: FENOFIBRATE 145 MG TABLET PO SCH (08:55)
[2019-01-02] MEDS: PANTOPRAZOLE 40 MG TABLET PO SCH (08:55)
[2019-01-02] MEDS: METOPROLOL TARTRATE 25 MG TABLET PO SCH ×2 (08:55→20:34)
[2019-01-02] MEDS: ASPIRIN EC 81 MG TABLET PO SCH (08:55)
[2019-01-02] MEDS: DOCUSATE SODIUM 100 MG CAPSULE PO SCH (08:56)
[2019-01-02] MEDS: hydroCHLOROthiazide 12.5 MG CAPSULE PO SCH (08:56)
[2019-01-02] MEDS: FERROUS SULFATE 325 MG TABLET PO SCH (08:56)
[2019-01-02] MEDS: CHLORHEXIDINE 0.12% ORAL RINSE 60 ML BOTTLE SWISH/SPIT SCH ×2 (09:10→20:35)
[2019-01-02] MEDS: amLODIPine 5 MG TABLET PO SCH (09:10)
[2019-01-02 16:11] LABS: Hematocrit 30.7 VOL% (35.7-47.0); Hemoglobin 9.9 GM/DL (12.0-16.0)
[2019-01-02] MEDS: HYDROcodone/HOMATROPINE 5 ML UDCUP PO PRN (20:34)
[2019-01-02] MEDS: oxyCODONE/ACETAMINOPHEN 5-325 MG TABLET PO PRN (22:18)
[2019-01-03] MEDS: HYDROcodone/HOMATROPINE 5 ML UDCUP PO PRN ×4 (00:43→22:30)
[2019-01-03] MEDS: ALBUTEROL/IPRATROPIUM 3 ML NEB RESP TX SCH ×4 (02:54→15:24)
[2019-01-03 04:57] LABS: Basophils % 0.2 % (0.0-0.8); Eosinophils # 0.3 10*3/uL (0.0-0.87); Eosinophils % 2.1 % (0.00-10.9); Hematocrit 28.6 VOL% (35.7-47.0); Hemoglobin 9.4 GM/DL (12.0-16.0); Immature Granulocytes % 2.5 %; Immature Granulocytes Absolute 0.33 #; Lymphocytes # 2.2 10*3/uL (1.4-4.0); Lymphocytes % 17.2 % (21.3-54.2); Mean Corpuscular HGB Conc 32.9 GM/DL (32-36); Mean Corpuscular Volume 92.9 FL (87-102); Mean Platelet Volume 11.4 FL (9.6-12.0); Monocytes % 9.4 % (1.7-12.7); NRBC # 0.02 10*3/uL; Neutrophils % 68.6 % (38.7-73.9); Platelet Count 243 T/CUMM (130-400); Red Blood Count 3.08 MC/CUMM (3.8-5.5)
[2019-01-03 05:05] LABS: Calcium 9.3 MG/DL (8.5-10.1); Osmolality,Calculated 290.7 MOS/KG (273-304)
[2019-01-03] MEDS ORDERED: FUROSEMIDE 40 MG/4 ML VIAL IV ONE (06:03)
[2019-01-03] MEDS: LEVOTHYROXINE 150 MCG TABLET PO SCH (06:37)
[2019-01-03] MEDS: INSULIN LISPRO 100 UNIT/ML SUBCUT SCH ×4 (09:11→22:30)
[2019-01-03] MEDS: ASCORBIC ACID 500 MG TABLET PO SCH ×2 (09:15→22:29)
[2019-01-03] MEDS: amLODIPine 5 MG TABLET PO SCH (09:18)
[2019-01-03] MEDS: hydroCHLOROthiazide 12.5 MG CAPSULE PO SCH (09:18)
[2019-01-03] MEDS: FERROUS SULFATE 325 MG TABLET PO SCH (09:18)
[2019-01-03] MEDS: PANTOPRAZOLE 40 MG TABLET PO SCH (09:18)
[2019-01-03] MEDS: FENOFIBRATE 145 MG TABLET PO SCH (09:18)
[2019-01-03] MEDS: DOCUSATE SODIUM 100 MG CAPSULE PO SCH (09:18)
[2019-01-03] MEDS: METOPROLOL TARTRATE 25 MG TABLET PO SCH ×2 (09:18→22:29)
[2019-01-03] MEDS: MECLIZINE 25 MG TABLET PO PRN (09:19)
[2019-01-03] MEDS: CHLORHEXIDINE 0.12% ORAL RINSE 60 ML BOTTLE SWISH/SPIT SCH ×2 (09:32→22:31)
[2019-01-03] MEDS: ASPIRIN EC 81 MG TABLET PO SCH (09:33)
[2019-01-03] MEDS: ROSUVASTATIN 20 MG TABLET PO SCH (22:29)
[2019-01-03] MEDS: oxyCODONE/ACETAMINOPHEN 5-325 MG TABLET PO PRN (22:29)
[2019-01-04] MEDS: HYDROcodone/HOMATROPINE 5 ML UDCUP PO PRN ×4 (04:25→21:28)
[2019-01-04 05:38] LABS: Basophils # 0.1 10*3/uL (0.0-0.2); Basophils % 0.4 % (0.0-0.8); Eosinophils # 0.4 10*3/uL (0.0-0.87); Eosinophils % 2.9 % (0.00-10.9); Hemoglobin 10.2 GM/DL (12.0-16.0); Immature Granulocytes % 3.6 %; Lymphocytes # 2.5 10*3/uL (1.4-4.0); Lymphocytes % 17.8 % (21.3-54.2); Mean Corpuscular HGB Conc 31.9 GM/DL (32-36); Mean Corpuscular Volume 94.1 FL (87-102); Mean Platelet Volume 11.3 FL (9.6-12.0); Monocytes % 10.5 % (1.7-12.7); Neutrophils % 64.8 % (38.7-73.9); Platelet Count 314 T/CUMM (130-400); Red Cell Distribution Width 14.7 % (9.3-17.3); White Blood Count 13.8 T/CUMM (4-12)
[2019-01-04 05:50] LABS: Alanine Aminotransferase 22 U/L (13-56); Albumin 2.9 G/DL (3.4-5.0); Alkaline Phosphatase 52 U/L (45-117); Aspartate Amino Transferase 34 U/L (0-37); Bilirubin,Indirect 1.1 MG/DL (0.0-1.0); Blood Urea Nitrogen 48 MG/DL (7-18); Calcium 9.5 MG/DL (8.5-10.1); Glucose 139 MG/DL (74-106); Osmolality,Calculated 287.8 MOS/KG (273-304); Total Protein 7.2 G/DL (6.4-8.3)
[2019-01-04] MEDS: ASCORBIC ACID 500 MG TABLET PO SCH ×2 (09:26→21:26)
[2019-01-04] MEDS: hydroCHLOROthiazide 12.5 MG CAPSULE PO SCH (09:26)
[2019-01-04] MEDS: POTASSIUM CHLORIDE 20 MEQ TABLET PO PRN ×2 (09:26→10:30)
[2019-01-04] MEDS: amLODIPine 5 MG TABLET PO SCH (09:26)
[2019-01-04] MEDS: ASPIRIN EC 81 MG TABLET PO SCH (09:26)
[2019-01-04] MEDS: PANTOPRAZOLE 40 MG TABLET PO SCH (09:26)
[2019-01-04] MEDS: FERROUS SULFATE 325 MG TABLET PO SCH (09:26)
[2019-01-04] MEDS: LEVOTHYROXINE 150 MCG TABLET PO SCH (09:26)
[2019-01-04] MEDS: METOPROLOL TARTRATE 25 MG TABLET PO SCH (09:26)
[2019-01-04] MEDS: DOCUSATE SODIUM 100 MG CAPSULE PO SCH (09:26)
[2019-01-04] MEDS: INSULIN LISPRO 100 UNIT/ML SUBCUT SCH ×4 (10:06→20:29)
[2019-01-04] MEDS: CHLORHEXIDINE 0.12% ORAL RINSE 60 ML BOTTLE SWISH/SPIT SCH ×2 (10:07→21:26)
[2019-01-04] MEDS: oxyCODONE/ACETAMINOPHEN 5-325 MG TABLET PO PRN (19:41)
[2019-01-04] MEDS: ROSUVASTATIN 20 MG TABLET PO SCH (21:26)
[2019-01-04] MEDS: METOPROLOL TARTRATE 50 MG TABLET PO SCH (21:26)
[2019-01-05 05:46] LABS: Basophils # 0.1 10*3/uL (0.0-0.2); Basophils % 0.4 % (0.0-0.8); Eosinophils # 0.5 10*3/uL (0.0-0.87); Eosinophils % 3.3 % (0.00-10.9); Hematocrit 30.5 VOL% (35.7-47.0); Hemoglobin 9.9 GM/DL (12.0-16.0); Immature Granulocytes % 4.6 %; Immature Granulocytes Absolute 0.63 #; Lymphocytes # 2.1 10*3/uL (1.4-4.0); Lymphocytes % 15.1 % (21.3-54.2); Mean Corpuscular HGB Conc 32.5 GM/DL (32-36); Mean Corpuscular Volume 93.8 FL (87-102); Mean Platelet Volume 11.1 FL (9.6-12.0); Monocytes % 9.1 % (1.7-12.7); Neutrophils % 67.5 % (38.7-73.9); Platelet Count 321 T/CUMM (130-400); Red Blood Count 3.25 MC/CUMM (3.8-5.5); Red Cell Distribution Width 14.5 % (9.3-17.3); White Blood Count 13.8 T/CUMM (4-12)
[2019-01-05 06:07] LABS: Calcium 9.2 MG/DL (8.5-10.1); Osmolality,Calculated 284.1 MOS/KG (273-304)
[2019-01-05 06:12] LABS: Alanine Aminotransferase 18 U/L (13-56); Albumin 2.9 G/DL (3.4-5.0); Alkaline Phosphatase 53 U/L (45-117); Aspartate Amino Transferase 27 U/L (0-37); Band Neutrophils 1 % (0-10); Bilirubin,Indirect 0.6 MG/DL (0.0-1.0); Blood Urea Nitrogen 49 MG/DL (7-18); Calcium 9.4 MG/DL (8.5-10.1); Eosinophils 2 % (0-10); Glucose 146 MG/DL (74-106); Lymphocytes 12 % (20-55); Myelocytes 3 %; Osmolality,Calculated 283.2 MOS/KG (273-304); Segmented Neutrophils 74 % (50-85); Total Cells Counted 100; Total Protein 7.1 G/DL (6.4-8.3)
[2019-01-05 06:13] LABS: Anisocytosis 1+; Platelet Estimate Adequate
[2019-01-05] MEDS: LEVOTHYROXINE 150 MCG TABLET PO SCH (06:35)
[2019-01-05] MEDS: INSULIN LISPRO 100 UNIT/ML SUBCUT SCH ×4 (08:19→21:35)
[2019-01-05] MEDS ORDERED: FUROSEMIDE 40 MG/4 ML VIAL IV ONE (08:42)
[2019-01-05] MEDS: CHLORHEXIDINE 0.12% ORAL RINSE 60 ML BOTTLE SWISH/SPIT SCH ×2 (09:28→21:35)
[2019-01-05] MEDS: DOCUSATE SODIUM 100 MG CAPSULE PO SCH (09:29)
[2019-01-05] MEDS: FERROUS SULFATE 325 MG TABLET PO SCH (09:29)
[2019-01-05] MEDS: PANTOPRAZOLE 40 MG TABLET PO SCH (09:29)
[2019-01-05] MEDS: ASPIRIN EC 81 MG TABLET PO SCH (09:29)
[2019-01-05] MEDS: ASCORBIC ACID 500 MG TABLET PO SCH ×2 (09:29→21:35)
[2019-01-05] MEDS: hydroCHLOROthiazide 12.5 MG CAPSULE PO SCH (09:29)
[2019-01-05] MEDS: METOPROLOL TARTRATE 50 MG TABLET PO SCH ×2 (09:29→21:35)
[2019-01-05] MEDS: oxyCODONE/ACETAMINOPHEN 5-325 MG TABLET PO PRN ×2 (13:45→21:34)
[2019-01-05] MEDS: ROSUVASTATIN 20 MG TABLET PO SCH (21:35)
[2019-01-05] MEDS: HYDROcodone/HOMATROPINE 5 ML UDCUP PO PRN (22:09)
[2019-01-06] MEDS: HYDROcodone/HOMATROPINE 5 ML UDCUP PO PRN ×4 (02:00→21:15)
[2019-01-06 06:35] LABS: Basophils # 0.1 10*3/uL (0.0-0.2); Basophils % 0.3 % (0.0-0.8); Eosinophils # 0.4 10*3/uL (0.0-0.87); Hemoglobin 9.7 GM/DL (12.0-16.0); Lymphocytes # 1.8 10*3/uL (1.4-4.0); Lymphocytes % 12.2 % (21.3-54.2); Mean Corpuscular HGB Conc 31.3 GM/DL (32-36); Mean Corpuscular Volume 95.4 FL (87-102); Mean Platelet Volume 10.6 FL (9.6-12.0); Monocytes % 8.7 % (1.7-12.7); Neutrophils % 71.8 % (38.7-73.9); Platelet Count 338 T/CUMM (130-400); Red Blood Count 3.25 MC/CUMM (3.8-5.5); Red Cell Distribution Width 14.3 % (9.3-17.3); White Blood Count 14.9 T/CUMM (4-12)
[2019-01-06] MEDS: LEVOTHYROXINE 150 MCG TABLET PO SCH (06:53)
[2019-01-06 06:58] LABS: Calcium 9.4 MG/DL (8.5-10.1); Osmolality,Calculated 283.1 MOS/KG (273-304)
[2019-01-06 07:04] LABS: Band Neutrophils 1 % (0-10); Eosinophils 2 % (0-10); Hypochromasia 1+; Lymphocytes 10 % (20-55); Platelet Estimate Adequate; Segmented Neutrophils 80 % (50-85); Total Cells Counted 100
[2019-01-06] MEDS: INSULIN LISPRO 100 UNIT/ML SUBCUT SCH ×4 (09:10→21:15)
[2019-01-06] MEDS: hydroCHLOROthiazide 12.5 MG CAPSULE PO SCH (09:20)
[2019-01-06] MEDS: ASPIRIN EC 81 MG TABLET PO SCH (09:21)
[2019-01-06] MEDS: ASCORBIC ACID 500 MG TABLET PO SCH ×2 (09:22→21:15)
[2019-01-06] MEDS: FERROUS SULFATE 325 MG TABLET PO SCH (09:22)
[2019-01-06] MEDS: DOCUSATE SODIUM 100 MG CAPSULE PO SCH (09:22)
[2019-01-06] MEDS: CHLORHEXIDINE 0.12% ORAL RINSE 60 ML BOTTLE SWISH/SPIT SCH ×2 (09:26→21:16)
[2019-01-06] MEDS: METOPROLOL TARTRATE 50 MG TABLET PO SCH ×2 (09:33→21:17)
[2019-01-06] MEDS: PANTOPRAZOLE 40 MG TABLET PO SCH (09:35)
[2019-01-06] MEDS: oxyCODONE/ACETAMINOPHEN 5-325 MG TABLET PO PRN (21:13)
[2019-01-06] MEDS: ZALEPLON 5 MG CAPSULE PO PRN (21:13)
[2019-01-06] MEDS: ROSUVASTATIN 20 MG TABLET PO SCH (21:18)
[2019-01-07] MEDS: HYDROcodone/HOMATROPINE 5 ML UDCUP PO PRN ×3 (01:15→18:33)
[2019-01-07 05:24] LABS: Basophils % 0.3 % (0.0-0.8); Eosinophils # 0.3 10*3/uL (0.0-0.87); Eosinophils % 2.8 % (0.00-10.9); Hematocrit 28.6 VOL% (35.7-47.0); Hemoglobin 9.1 GM/DL (12.0-16.0); Immature Granulocytes % 3.6 %; Immature Granulocytes Absolute 0.42 #; Lymphocytes # 1.7 10*3/uL (1.4-4.0); Lymphocytes % 14.4 % (21.3-54.2); Mean Corpuscular HGB Conc 31.8 GM/DL (32-36); Mean Corpuscular Volume 94.7 FL (87-102); Mean Platelet Volume 10.6 FL (9.6-12.0); Monocytes % 9.4 % (1.7-12.7); Neutrophils % 69.5 % (38.7-73.9); Platelet Count 328 T/CUMM (130-400); Red Blood Count 3.02 MC/CUMM (3.8-5.5); Red Cell Distribution Width 14.1 % (9.3-17.3); White Blood Count 11.7 T/CUMM (4-12)
[2019-01-07] MEDS: LEVOTHYROXINE 150 MCG TABLET PO SCH (06:55)
[2019-01-07] MEDS: CHLORHEXIDINE 0.12% ORAL RINSE 60 ML BOTTLE SWISH/SPIT SCH ×2 (10:09→21:00)
[2019-01-07] MEDS: hydroCHLOROthiazide 12.5 MG CAPSULE PO SCH (10:10)
[2019-01-07] MEDS: METOPROLOL TARTRATE 50 MG TABLET PO SCH ×2 (10:11→20:29)
[2019-01-07] MEDS: DOCUSATE SODIUM 100 MG CAPSULE PO SCH (10:11)
[2019-01-07] MEDS: MECLIZINE 25 MG TABLET PO PRN (10:11)
[2019-01-07] MEDS: ASCORBIC ACID 500 MG TABLET PO SCH ×2 (10:11→20:29)
[2019-01-07] MEDS: ASPIRIN EC 81 MG TABLET PO SCH (10:31)
[2019-01-07] MEDS: PANTOPRAZOLE 40 MG TABLET PO SCH (10:32)
[2019-01-07] MEDS: FERROUS SULFATE 325 MG TABLET PO SCH (10:32)
[2019-01-07] MEDS: INSULIN LISPRO 100 UNIT/ML SUBCUT SCH ×4 (10:33→20:29)
[2019-01-07] MEDS: ROSUVASTATIN 20 MG TABLET PO SCH (20:29)
[2019-01-07] MEDS: ZALEPLON 5 MG CAPSULE PO PRN (20:29)
[2019-01-07] MEDS: oxyCODONE/ACETAMINOPHEN 5-325 MG TABLET PO PRN (20:30)
[2019-01-08] MEDS: HYDROcodone/HOMATROPINE 5 ML UDCUP PO PRN ×5 (00:10→21:03)
[2019-01-08 05:05] LABS: Basophils % 0.3 % (0.0-0.8); Eosinophils # 0.2 10*3/uL (0.0-0.87); Eosinophils % 2.1 % (0.00-10.9); Hematocrit 28.4 VOL% (35.7-47.0); Hemoglobin 8.8 GM/DL (12.0-16.0); Immature Granulocytes % 4.4 %; Immature Granulocytes Absolute 0.51 #; Lymphocytes # 1.7 10*3/uL (1.4-4.0); Lymphocytes % 14.6 % (21.3-54.2); Mean Platelet Volume 10.6 FL (9.6-12.0); Monocytes % 11.7 % (1.7-12.7); Neutrophils % 66.9 % (38.7-73.9); Platelet Count 355 T/CUMM (130-400); Red Blood Count 2.99 MC/CUMM (3.8-5.5); Red Cell Distribution Width 14.4 % (9.3-17.3); White Blood Count 11.6 T/CUMM (4-12)
[2019-01-08 05:15] LABS: Osmolality,Calculated 282.8 MOS/KG (273-304)
[2019-01-08 06:02] LABS: Band Neutrophils 1 % (0-10); Eosinophils 3 % (0-10); Lymphocytes 24 % (20-55); Platelet Estimate Normal; Segmented Neutrophils 59 % (50-85); Total Cells Counted 100
[2019-01-08] MEDS: LEVOTHYROXINE 150 MCG TABLET PO SCH (07:10)
[2019-01-08] MEDS: INSULIN LISPRO 100 UNIT/ML SUBCUT SCH ×4 (08:05→21:13)
[2019-01-08] MEDS: MECLIZINE 25 MG TABLET PO PRN (08:53)
[2019-01-08] MEDS: DOCUSATE SODIUM 100 MG CAPSULE PO SCH (08:53)
[2019-01-08] MEDS: ASCORBIC ACID 500 MG TABLET PO SCH ×2 (08:53→21:03)
[2019-01-08] MEDS: ASPIRIN EC 81 MG TABLET PO SCH (08:53)
[2019-01-08] MEDS: FERROUS SULFATE 325 MG TABLET PO SCH (08:54)
[2019-01-08] MEDS: METOPROLOL TARTRATE 50 MG TABLET PO SCH ×2 (08:54→21:03)
[2019-01-08] MEDS: hydroCHLOROthiazide 12.5 MG CAPSULE PO SCH (08:55)
[2019-01-08] MEDS: CHLORHEXIDINE 0.12% ORAL RINSE 60 ML BOTTLE SWISH/SPIT SCH ×2 (08:55→21:13)
[2019-01-08] MEDS: PANTOPRAZOLE 40 MG TABLET PO SCH (08:59)
[2019-01-08] MEDS: oxyCODONE/ACETAMINOPHEN 5-325 MG TABLET PO PRN (21:02)
[2019-01-08] MEDS: ZALEPLON 5 MG CAPSULE PO PRN (21:02)
[2019-01-08] MEDS: ROSUVASTATIN 20 MG TABLET PO SCH (23:15)
[2019-01-09 05:04] LABS: Basophils % 0.3 % (0.0-0.8); Eosinophils # 0.3 10*3/uL (0.0-0.87); Eosinophils % 2.4 % (0.00-10.9); Hematocrit 27.8 VOL% (35.7-47.0); Hemoglobin 8.6 GM/DL (12.0-16.0); Immature Granulocytes % 3.8 %; Lymphocytes # 1.7 10*3/uL (1.4-4.0); Lymphocytes % 16.7 % (21.3-54.2); Mean Corpuscular HGB Conc 30.9 GM/DL (32-36); Mean Corpuscular Volume 96.2 FL (87-102); Mean Platelet Volume 10.4 FL (9.6-12.0); Monocytes % 12.6 % (1.7-12.7); Neutrophils % 64.2 % (38.7-73.9); Platelet Count 371 T/CUMM (130-400); Red Blood Count 2.89 MC/CUMM (3.8-5.5); Red Cell Distribution Width 14.6 % (9.3-17.3); White Blood Count 10.4 T/CUMM (4-12)
[2019-01-09 05:24] LABS: Calcium 9.1 MG/DL (8.5-10.1); Osmolality,Calculated 278.1 MOS/KG (273-304)
[2019-01-09] MEDS: LEVOTHYROXINE 150 MCG TABLET PO SCH (07:00)
[2019-01-09] MEDS: HYDROcodone/HOMATROPINE 5 ML UDCUP PO PRN (07:26)
[2019-01-09] MEDS: ASCORBIC ACID 500 MG TABLET PO SCH ×2 (09:17→21:07)
[2019-01-09] MEDS: METOPROLOL TARTRATE 50 MG TABLET PO SCH (09:19)
[2019-01-09] MEDS: FERROUS SULFATE 325 MG TABLET PO SCH (09:22)
[2019-01-09] MEDS: CHLORHEXIDINE 0.12% ORAL RINSE 60 ML BOTTLE SWISH/SPIT SCH ×2 (09:22→21:08)
[2019-01-09] MEDS: ASPIRIN EC 81 MG TABLET PO SCH (09:23)
[2019-01-09] MEDS: hydroCHLOROthiazide 12.5 MG CAPSULE PO SCH (09:23)
[2019-01-09] MEDS: DOCUSATE SODIUM 100 MG CAPSULE PO SCH (09:23)
[2019-01-09] MEDS: INSULIN LISPRO 100 UNIT/ML SUBCUT SCH ×4 (09:23→21:08)
[2019-01-09] MEDS: PANTOPRAZOLE 40 MG TABLET PO SCH (09:23)
[2019-01-09] MEDS: oxyCODONE/ACETAMINOPHEN 5-325 MG TABLET PO PRN ×2 (13:49→21:17)
[2019-01-09] MEDS: ROSUVASTATIN 20 MG TABLET PO SCH (21:07)
[2019-01-09] MEDS: METOPROLOL TARTRATE 25 MG TABLET PO SCH (21:07)
[2019-01-09] MEDS: ZALEPLON 5 MG CAPSULE PO PRN (21:17)
[2019-01-10] MEDS: HYDROcodone/HOMATROPINE 5 ML UDCUP PO PRN ×2 (00:03→06:01)
[2019-01-10] MEDS: LEVOTHYROXINE 150 MCG TABLET PO SCH (06:01)
[2019-01-10] MEDS: INSULIN LISPRO 100 UNIT/ML SUBCUT SCH (08:22)
[2019-01-10 08:33] VITALS: BP 132/82
[2019-01-10] MEDS: METOPROLOL TARTRATE 25 MG TABLET PO SCH (08:45)
[2019-01-10] MEDS: ASCORBIC ACID 500 MG TABLET PO SCH (08:45)
[2019-01-10] MEDS: hydroCHLOROthiazide 12.5 MG CAPSULE PO SCH (08:45)
[2019-01-10] MEDS: ASPIRIN EC 81 MG TABLET PO SCH (08:45)
[2019-01-10] MEDS: PANTOPRAZOLE 40 MG TABLET PO SCH (08:45)
[2019-01-10] MEDS: DOCUSATE SODIUM 100 MG CAPSULE PO SCH (08:45)
[2019-01-10] MEDS: FERROUS SULFATE 325 MG TABLET PO SCH (08:45)
[2019-01-10] MEDS: CHLORHEXIDINE 0.12% ORAL RINSE 60 ML BOTTLE SWISH/SPIT SCH (08:48)
== END 2019-01-10 11:30 | disposition home or self-care (01) | DRG 233 ==
LOC: N.TELEN 06:13 → N.CL 06:13 → N.TELEN 11:22 → N.CVR 12-30 09:27 → N.TELES 12-31 12:50
PROVIDERS: ADMIT Internal Medicine Interventional Cardiology; ATTEND Internal Medicine Interventional Cardiology
PROC: CLCCHCL (ICD-10-PCS; 2018-12-27 09:15)